=== PATIENT | female | born 1970 | race Caucasian/White ===

== ENCOUNTER → 2017-01-07 | Outpatient (CLI) | payer OTHER ==
[~2017-01-07] MED LIST: LORTAB 5/500 501 TAB PO
--- NOTE | 2017-01-10 18:31 | RADIOLOGY REPORT PS360 ---
DIG MAMM-SCREEN [facility] W/CAD CAD Screening COMPARISON: Digital mammograms 12/02/2015 and 11/29/2014 and additional views right breast 12/09/2014 INDICATION: There is a history of breast cancer in patient's mother diagnosed in her 40s before menopause. TECHNIQUE: Standard CC and MLO images were obtained. R2 CAD reviewed. FINDINGS: Prominent diffuse heterogenic fibroglandular densities are seen throughout both breasts lessening the sensitivity of mammography. The findings are bilateral and symmetrical. There are couple benign-appearing calcifications in each breast. There is a mole marker right breast. There is no suspicious lesion and there are no suspicious microcalcifications. IMPRESSION: Stable moderately and diffusely dense parenchymal pattern, recommend yearly follow-up BI-RADS CATEGORY: 2_Benign RECOMMENDED FOLLOWUP: 12M 12 MONTH FOLLOW-UP (A letter has been sent to the patient regarding results of the study.)
== END ==
LOC: RAD 08:31
DX: Z12.31 Encounter for screening mammogram for malignant neoplasm of breast (principal)
CPT/HCPCS: G0202